=== PATIENT | female | born 1955 | race Caucasian/White ===

== ENCOUNTER 2019-08-03 19:29 | Emergency (ER) | payer OTHER, MEDICAID ==
[~2019-08-03] VITALS: Ht 162.6 cm; Wt 86.2 kg
[2019-08-03 19:47] VITALS: BP_SYST 143
[2019-08-03 21:30] LABS: BILIRUBIN,URINE NEGATIVE (NEGATIVE); BLOOD, URINE 3+ (NEGATIVE); CLARITY/URINE SL CLOUDY (CLEAR); COLOR,URINE YELLOW (YELLOW); GLUCOSE,URINE 3+ (NEGATIVE); KETONES,URINE NEGATIVE (NEGATIVE); LEUKOCYTE ESTERASE ,URINE 1+ (NEGATIVE); NITRITE, URINE NEGATIVE (NEGATIVE); PH,URINE 6.5 (5.0-8.0); PROTEIN URINE TRACE (NEGATIVE)
[2019-08-03 22:20] LABS: BACTERIA,URINE MANY /HPF (None Seen); WBC,URINE >100 /HPF (0-3)
[2019-08-03 22:21] LABS: MUCUS,URINE None Seen /LPF (None Seen); URINE AMORPHOUS URATE 3+ /HPF (None Seen)
--- NOTE | 2019-08-03 23:25 | NUR ---
Patient to ER bed 3 to gown for evaluation. Side rails up. Report given to LINDA Calderon.
--- NOTE | 2019-08-04 | NUR ---
Pt presents to ER with daughter with c/o right lower abdominal pain and urinary problems. Pt A&Ox4. Pt states she has hematuria, dysuria, chills, fever, nausea and lower right abdominal pain that radiates to right flank. Pt states symptoms began 3 days ago. Pt states pain 9/10. Pt denies vomiting. Pt states she was diagnosed with UTI by primary MD and was put on antibiotics. Pt states she finished all antibiotics and symptoms still continue. Pt states she does not remember name of antibiotic but finished 3 days ago. Pt breath sounds bilaterally clear with no use of accessory muscles. Will continue to monitor.
--- NOTE | 2019-08-04 00:07 | NUR ---
ER Dr. Andersen at bedside examining patient.
[2019-08-04] MEDS ORDERED: NACL 0.9% 1,000 ML IV ONE (00:11)
[2019-08-04] MEDS ORDERED: MORPHINE 4 MG/ML INJ. SYRINGE IVP ONE (00:15)
[2019-08-04] MEDS ORDERED: DIPHENHYDRAMINE INJ 50 MG/ML VIAL IVP ONE (00:15)
[2019-08-04] MEDS ORDERED: ONDANSETRON HCL 4 MG/2 ML VIAL IVP ONE (00:15)
--- NOTE | 2019-08-04 00:35 | NUR ---
Pt medicated per MD orders. Pt tolerated well. Will continue to monitor.
[2019-08-04 00:41] LABS: BASOPHILS % (AUTO) 0.6 % (0.0-2.0); EOSINOPHILS % (AUTO) 0.7 % (0.0-4.0); HEMATOCRIT 40.8 % (36-48); HEMOGLOBIN 13.9 g/dL (12.0-16.0); LYMPHOCYTES # (AUTO) 0.7 K/uL (1.0-5.5); LYMPHOCYTES % (AUTO) 17.2 % (20.5-51.5); MEAN CORPUSCULAR HEMOGLOBIN 35 pg (27-31); MEAN CORPUSCULAR HGB CONC 34 % (32-36); MEAN CORPUSCULAR VOLUME 104 fL (79.0-98.0); MONOCYTES # (AUTO) 0.6 K/uL (0.0-1.0); MONOCYTES % (AUTO) 15.5 % (1.7-9.3); NEUTROPHILS # (AUTO) 2.6 K/uL (1.8-7.7); PLATELET COUNT (AUTO) 81 K/uL (130-430); RED BLOOD CELL COUNT(AUTO) 3.92 MIL/uL (4.2-6.2); RED CELL DISTRIBUTION WIDTH 15.9 % (9.0-15.0)
--- NOTE | 2019-08-04 00:41 | NUR ---
Pt off floor to radiology via gurney in stable condition with installation tech.
[2019-08-04 00:55] LABS: CALCIUM 8.9 mg/dL (8.4-11.0); CREATININE 0.63 mg/dL (0.55-1.30); POTASSIUM 3.8 mmol/L (3.5-5.1)
[2019-08-04 01:02] LABS: ALBUMIN 3.1 g/dL (3.4-4.8)
--- NOTE | 2019-08-04 01:30 | NUR ---
Assisted pt to bedside commode. Pt tolerated well. Will continue to monitor.
[2019-08-04] MEDS ORDERED: cefTRIAXone 1 GM IVPB PREMIX 50 ML IV ONE (01:45)
--- NOTE | 2019-08-04 02:22 | NUR ---
Pt medicated per MD orders. Pt tolerated well. Will continue to monitor.
--- NOTE | 2019-08-04 03:00 | NUR ---
Pt recieved Mauri SKELTON by RN started @ 022 and completed @ 7105
--- NOTE | 2019-08-04 03:00 | NUR ---
NS given by RN started @ 0033 and completed infusion @ 0300
[2019-08-04 03:06] VITALS: BP_SYST 136
--- NOTE | 2019-08-04 03:06 | NUR ---
Patient given written and verbal discharge instructions and verbalizes understanding. ER MD Andersen discussed with patient the results and treatment provided. Patient in stable condition. ID arm band removed. IV catheter removed intact and dressing applied, no active bleeding. Rx of Bactrim and Ibuprofen given. Patient educated on pain management and to follow up with PMD. Pain Scale 0/10. Opportunity for questions provided and answered. Medication side effect fact sheet provided.
== END 2019-08-04 03:06 | disposition home or self-care (01) ==
LOC: SED 19:29
DX: R10.31 Right lower quadrant pain (principal); R35.0 Frequency of micturition; R31.9 Hematuria, unspecified; E07.9 Disorder of thyroid, unspecified; Z90.49 Acquired absence of other specified parts of digestive tract; Z90.710 Acquired absence of both cervix and uterus
CPT/HCPCS: 36415; 74176; 80053; 81000; 85025; 87086; 87186; 96365; 96375; 99284; J0696; J1200; J2270; J2405; J7030

== ENCOUNTER 2019-08-07 11:10 | Emergency (ER) | payer OTHER, MEDICAID ==
[~2019-08-07] VITALS: Ht 160 cm; Wt 86.2 kg
[2019-08-07 11:10] VITALS: BP_SYST 122
--- NOTE | 2019-08-07 11:10 | NUR ---
BROUGHT BACK TO BED #6 AND TRIAGED. REPORT GIVEN TO MAAME
[2019-08-07 11:20] VITALS: BP_SYST 157
--- NOTE | 2019-08-07 11:29 | NUR ---
Patient AAO x 4 [place] Citizen-speaking ambulates to bed 06 accompanied by daughter with complaints of 8/10 pain to L breast. Small mass noted x 1 week ago from self exam but has not followed up with PCP yet. Patient's daughter reports history of DM2, thyroid problems, and uterine cancer. Even chest rise and fall on respiration. Will continue to monitor.
--- NOTE | 2019-08-07 11:34 | NUR ---
ER Dr. Quinn at bedside examining patient.
--- NOTE | 2019-08-07 12:30 | NUR ---
Patient given written and verbal discharge instructions and verbalizes understanding. ER MD discussed with patient the results and treatment provided. Patient in stable condition. ID arm band removed. Rx of tramadol given. Patient educated on pain management and to follow up with PMD. Pain Scale 8/10.Opportunity for questions provided and answered. Medication side effect fact sheet provided.
[2019-08-07 12:31] VITALS: BP_SYST 125
== END 2019-08-07 12:30 | disposition home or self-care (01) ==
LOC: SED 11:10
DX: N63.20 Unspecified lump in the left breast, unspecified quadrant (principal); E11.9 Type 2 diabetes mellitus without complications; E07.9 Disorder of thyroid, unspecified; Z85.42 Personal history of malignant neoplasm of other parts of uterus; Z90.49 Acquired absence of other specified parts of digestive tract; Z90.710 Acquired absence of both cervix and uterus
CPT/HCPCS: 99283